=== PATIENT | male | born 1975 | race Caucasian/White ===

== ENCOUNTER 2018-07-27 12:27 | Emergency (ER) | payer BC ==
[2018-07-27] MEDS ORDERED: ASPIRIN 81 MG TABLET, CHEWABLE PO ONE (12:52)
--- NOTE | 2018-07-27 13:20 | ER Document Report ---
Entered by ROHINI DORANTES SCRIBE 07/27/18 [id number] Acting as scribe for:REINALDO DICKINSON DO ED Medical Screen (RME) - General Chief Complaint: Nausea/Vomiting/Diarrhea Stated Complaint: NAUSEA/VOMITING Time Seen by Provider: 07/27/18 12:47 Notes: 43-year-old male who presents to the emergency department today with complaints of dyspnea, diaphoresis, nausea, vomiting, muscle aches, and feeling generally weak. Patient states all of his symptoms began about the same time this morning at around 0900. Patient denies a history of coronary artery disease but adds that his father did have an GA at age 75. Patient states he has noticed some left sided chest discomfort and left upper extremity pain intermittently when working out. Patient denies any sick contacts or chest pain. I have greeted and performed a rapid initial assessment of this patient. A comprehensive ED assessment and evaluation of the patient, analysis of test results, and completion of the medical decision making process will be conducted by additional ED providers. Review of systems: Constitutional: Diaphoretic. EENT: No symptoms reported Cardiovascular: Denies chest pain. Respiratory: Shortness of breath. Gastrointestinal: Nausea and vomiting. Genitourinary: No symptoms reported Musculoskeletal: Generalized myalgias, generalized weakness. Skin: No symptoms reported Hematologic/Lymphatic: No symptoms reported Neurological/Psychological: No symptoms reported Yes All other systems reviewed and negative PHYSICAL EXAM GENERAL: Alert, interacts well. Appears comfortable despite being profusely diaphoretic. HEAD: Normocephalic, atraumatic. EYES: Pupils equal, round, and reactive to light. Extraocular movements intact. ENT: Oral mucosa moist, tongue midline. NECK: Full range of motion. Supple. Trachea midline. LUNGS: Clear to auscultation bilaterally, no wheezes, rales, or rhonchi. No respiratory distress. HEART: Regular rate and rhythm. No murmurs, gallops, or rubs. EXTREMITIES: Moves all 4 extremities spontaneously. NEUROLOGICAL: Alert and oriented x3. Normal speech. PSYCH: Normal affect, normal mood. SKIN: Warm and diaphoretic. - Related Data Allergies/Adverse Reactions: erythromycin base Allergy (Verified 07/27/18 12:29) Past Medical History - Social History Frequency of alcohol use: Rare - Past Medical History Cardiac Medical History: Reports: Hx Hypertension Renal/ Medical History: Denies: Hx Peritoneal Dialysis Physical Exam - Vital signs Vitals: Temp Pulse Resp BP Pulse Ox 97.5 F 81 24 H 118/77 97 07/27/18 12:40 07/27/18 12:40 07/27/18 12:40 07/27/18 12:40 07/27/18 12:40 Course - Vital Signs Vital signs: Temp Pulse Resp BP Pulse Ox 97.5 F 81 24 H 118/77 97 07/27/18 12:40 07/27/18 12:40 07/27/18 12:40 07/27/18 12:40 07/27/18 12:40 I personally performed the services described in the documentation, reviewed and edited the documentation which was dictated to the scribe in my presence, and it accurately records my words and actions.
[2018-07-27] MEDS ORDERED: ONDANSETRON HCL INJ/PF 4 MG/2 ML SDV IV ONE (13:33)
[2018-07-27 13:42] LABS: ABSOLUTE LYMPHOCYTES (AUTO) 1.5 10^3/uL (0.5-4.7); ABSOLUTE MONOCYTES (AUTO) 0.3 10^3/uL (0.1-1.4); ABSOLUTE NEUT (AUTO) 12.1 10^3/uL (1.7-8.2); BASOPHILS % (AUTO) 0.2 % (0-2); EOSINOPHILS % (AUTO) 0.1 % (0-6); HEMATOCRIT 46.3 % (37.9-51.0); LYMPHOCYTES % (AUTO) 10.7 % (13-45); MEAN CORPUSCULAR HEMOGLOBIN 31.6 pg (27.0-33.4); MEAN CORPUSCULAR HGB CONC 34.7 g/dL (32.0-36.0); MEAN CORPUSCULAR VOLUME 91 fl (80-97); MONOCYTES % (AUTO) 2.2 % (3-13); PLATELET COUNT 340 10^3/uL (150-450); RED BLOOD COUNT 5.07 10^6/uL (4.35-5.55); RED CELL DISTRIBUTION WIDTH 12.9 % (11.5-14.0); SEGMENTED NEUTROPHILS % (AUTO) 86.8 % (42-78); TOTAL CELLS COUNTED % (AUTO) 100 %; WHITE BLOOD COUNT 13.9 10^3/uL (4.0-10.5)
--- NOTE | 2018-07-27 13:47 | ER Document Report ---
ED General - General Chief Complaint: Nausea/Vomiting/Diarrhea Stated Complaint: NAUSEA/VOMITING Time Seen by Provider: 07/27/18 12:47 Primary Care Provider: CHRIS DE DIOS MD [ACTIVE STAFF] - Follow up as needed - [facility] Notes: Patient is a 43-year-old male with a history of hypertension who presents to the emergency department complaining of nausea, vomiting, diarrhea, and left lower quadrant abdominal pain that began this morning. Patient states that he does have associated diaphoresis and feels generally weak. Patient states that he has had a dry nonproductive cough today as well. His last episode of emesis was just prior to getting into a room in the emergency department. Patient states that his diarrhea is mostly watery without any melena or hematochezia. Patient states that he is able to eat and drink, but does have a decreased p.o. intake. He is urinating normally. No other surgical history. Contrary to the RME note, he adamantly denies any chest pain or discomfort. Patient states he does not have shortness of breath just "breathing faster." Denies any prolonged immobilization, distance travel, recent surgery/trauma, personal cancer history, hormone use, smoking, or previous DVT/PE. No other significant cardiopulmonary medical history. Father had an CA at 75. Denies any headache, fever, neck pain, changes in vision/speech/mentation/hearing, URI, sore throat, chest pain, palpitations, syncope, cough, wheeze, urinary retention, dysuria, hematuria, back pain, loss of control of bowel or bladder, numbness/tingling, muscle paralysis/weakness, or rash. - Related Data Allergies/Adverse Reactions: erythromycin base Allergy (Verified 07/27/18 12:29) Past Medical History - Social History Smoking Status: Never Smoker Frequency of alcohol use: Rare Family History: Reviewed & Not Pertinent Patient has suicidal ideation: No Patient has homicidal ideation: No - Past Medical History Cardiac Medical History: Reports: Hx Hypertension Renal/ Medical History: Denies: Hx Peritoneal Dialysis Review of Systems - Review of Systems -: Yes All other systems reviewed and negative Physical Exam - Vital signs Vitals: Temp Pulse Resp BP Pulse Ox 97.5 F 81 24 H 118/77 97 07/27/18 12:40 07/27/18 12:40 07/27/18 12:40 07/27/18 12:40 07/27/18 12:40 - Notes Notes: PHYSICAL EXAMINATION: GENERAL: Well-appearing, well-nourished and in no acute resp distress, but is slightly tachypneic and diaphoretic. A&Ox4. Answers questions appropriately. HEAD: Atraumatic, normocephalic. EYES: Pupils equal round and reactive to light, extraocular movements intact, sclera anicteric, conjunctiva are normal. ENT: Nares patent and without discharge. oropharynx clear without exudates. No tonsilar hypertrophy or erythema. Moist mucous membranes. NECK: Normal range of motion, supple without lymphadenopathy LUNGS: Breath sounds clear to auscultation bilaterally and equal. No wheezes rales or rhonchi. HEART: Regular rate and rhythm without murmurs, rubs, gallops. ABDOMEN: Soft, nondistended abdomen. No guarding. Normal bowel sounds present. No CVA tenderness bilaterally. + tenderness to the LLQ. When palpating the LUQ, pt felt pain in his LLQ. Shearer neg. No tenderness at [place]. Musculoskeletal: FROM to passive/active. Strength 5+/5. Brittany neg. No asymmetry to LE's. Extremities: No cyanosis, clubbing, or edema b/l. Peripheral pulses 2+. Capillary refill less than 3 seconds. NEUROLOGICAL: Normal speech, normal gait. PSYCH: Normal mood, normal affect. SKIN: Warm, Dry, normal turgor, no rashes or lesions noted. Course - Re-evaluation Re-evalutation: 07/27/18 18:[address] Calderon who is in agreement with dispo/plan (he also eval'd the patient): Patient is an afebrile, well-hydrated 43-year-old male who presents to the ED with n/v/d and abd pain, suspect viral. He does have associated weakness and diaphoresis primarily when he becomes nauseated. Vitals are acceptable without any significant tachycardia, tachypnea, or hypoxia. PE is otherwise unremarkable. Patient is nontoxic-appearing and is tolerating p.o. without any difficulties. CBC, CMP, EKG/cardiac enzymes 2, chest x-ray, and CT abd/pelv are all unremarkable for any acute pathology. Pt has received nausea meds and fl uids throughout his stay. He has not had any episodes of emesis. Patient has a heart score of 3, Wells score of 0, and is PERC negative. Orthostatics and ambulatory pulse ox was acceptable. Patient does not have any chest pain, dyspnea, or shortness of breath. Patient's presentation and symptomatology creates low suspicion for ACS, PE, pneumothorax, pericarditis, dissection, respiratory compromise, severe dehydration, sepsis, meningitis, or other systemic emergent condition at this time. Patient is aware that his condition can change from initial presentation and he needs to monitor symptoms closely and seek medical attention for any acute changes. Rx for zofran. Recommend conservative measures for symptoms. Recheck with your PCM in 2-3 days. Return to the ED with any worsening/concerning symptoms otherwise as reviewed in discharge. Patient is in agreement. - Vital Signs Vital signs: Temp Pulse Resp BP Pulse Ox 97.9 F 94 24 H 111/55 L 99 07/27/18 17:14 07/27/18 18:13 07/27/18 17:14 07/27/18 18:13 07/27/18 17:14 - Laboratory Result Diagrams: 07/27/18 13:08 07/27/18 13:08 Laboratory results interpreted by me: 07/27/18 07/27/18 07/27/18 12:35 13:08 13:08 WBC 13.9 H Seg Neutrophils % 86.8 H Lymphocytes % 10.7 L Monocytes % 2.2 L Absolute Neutrophils 12.1 H Carbon Dioxide 20 L Glucose 158 H POC Glucose 149 H Creatine Kinase 298 H Discharge - Discharge Clinical Impression: Nausea vomiting and diarrhea, Weakness Condition: Stable Disposition: HOME, SELF-CARE Instructions: Antinausea Medication ([facility]), Vomiting ([facility]) Additional Instructions: Maintain adequate fluid and food intake [place] diet ([employer] Bananas, rice, apples, toast, etc Zofran as needed tylenol if needed Monitor for any worsening symptoms Make sure you are staying hydrated enough to urinate and have normal BM's Recheck with your PCM in 2-3 days Consider consult with Gastroenterology for ongoing/worsening symptoms Return to the ED with any worsening symptoms and/or development of fever, headache, chest pain, palpitations, syncope, shortness of breath, trouble breathing, abdominal pain, n/v/d, blood in stool/urine, weakness, or other worsening symptoms that are concerning to you. Prescriptions: Ondansetron [Zofran Odt 4 mg Tablet] 1 - 2 tab PO Q4H PRN #15 tab.rapdis PRN Reason: For Nausea/Vomiting Referrals: CHRIS DE DIOS MD [ACTIVE STAFF] - Follow up as needed
[2018-07-27 13:49] LABS: A TYPE INFLUENZA AG NEGATIVE (NEGATIVE); B INFLUENZA AG NEGATIVE (NEGATIVE)
[2018-07-27 13:50] LABS: ALANINE AMINOTRANSFERASE 42 U/L (21-72); ALBUMIN 4.6 g/dL (3.5-5.0); ALKALINE PHOSPHATASE 73 U/L (38-126); ANION GAP 18 (5-19); ASPARTATE AMINO TRANSFERASE 49 U/L (17-59); BILIRUBIN,DIRECT 0.4 mg/dL (0.0-0.4); BILIRUBIN,TOTAL 0.4 mg/dL (0.2-1.3); BLOOD UREA NITROGEN 18 mg/dL (7-20); CALCIUM 9.9 mg/dL (8.4-10.2); CARBON DIOXIDE 20 mmol/L (22-30); CHLORIDE 104 mmol/L (98-107); CREATINE KINASE 298 U/L (55-170); GLUCOSE 158 mg/dL (75-110); POTASSIUM 4.3 mmol/L (3.6-5.0); SODIUM 141.6 mmol/L (137-145)
[2018-07-27] MEDS: NORMAL SALINE 1000 ML 1,000 ML IV PRN ×2 (13:53→14:52)
--- NOTE | 2018-07-27 13:53 | RADIOLOGY REPORT (SQ) ---
EXAM DESCRIPTION: CHEST SINGLE VIEW COMPLETED DATE/TIME: 07/27/2018 1:38 pm REASON FOR STUDY: SOB COMPARISON: None. EXAM PARAMETERS: NUMBER OF VIEWS: One view. TECHNIQUE: Single frontal radiographic view of the chest acquired. RADIATION DOSE: NA LIMITATIONS: None. FINDINGS: LUNGS AND PLEURA: No opacities, masses or pneumothorax. No pleural effusion. MEDIASTINUM AND HILAR STRUCTURES: No masses. Contour normal. HEART AND VASCULAR STRUCTURES: Heart normal in size. Normal vasculature. BONES: No acute findings. HARDWARE: None in the chest. OTHER: No other significant finding. IMPRESSION: NO ACUTE RADIOGRAPHIC FINDING IN THE CHEST. TECHNICAL DOCUMENTATION: JOB ID: [id number] [employer]- All Rights Reserved Reading location - IP/workstation name: [email or web address]
[2018-07-27 14:03] LABS: CREATINE KINASE MB 2.65 ng/mL (<4.55)
[2018-07-27 14:06] LABS: TROPONIN I < 0.012 ng/mL
--- NOTE | 2018-07-27 15:09 | RADIOLOGY REPORT (SQ) ---
EXAM DESCRIPTION: CT ABD/PELVIS WITH IV ONLY COMPLETED DATE/TIME: 07/27/2018 2:51 pm REASON FOR STUDY: LLQ pain COMPARISON: None. TECHNIQUE: CT scan of the abdomen and pelvis performed using helical scanning technique with dynamic intravenous contrast injection. No oral contrast. Images reviewed with lung, soft tissue, and bone windows. Reconstructed coronal and sagittal MPR images reviewed. Delayed images for evaluation of the urinary system also acquired. All images stored on PACS. All CT scanners at this facility use dose modulation, iterative reconstruction, and/or weight based d osing when appropriate to reduce radiation dose to as low as reasonably achievable (ALARA). [facility]: Dose Right [facility]: CareDose [facility]: Dose Right [facility]: Teradose 4D [facility]: VirnetX CONTRAST TYPE AND DOSE: contrast/concentration: Isovue 350.00 mg/ml; Total Contrast Delivered: 100.0 ml; Total Saline Delivered: 68.0 ml RENAL FUNCTION: BUN 18 creatinine 0.94 RADIATION DOSE: CT Rad equipment meets quality standard of care and radiation dose reduction techniq ues were employed. CTDIvol: 20.2 - 21.0 mGy. DLP: 2413 mGy-cm.. LIMITATIONS: None. FINDINGS: LOWER CHEST: No significant findings. No nodules or infiltrates. LIVER: There is a focal area of irregular calcification in the dome of the liver. No hepatic masses. Normal attenuation. SPLEEN: Normal size. No focal lesions. PANCREAS: No masses. No significant calcifications. No adjacent inflammation or peripancreatic fluid collections. Pancreatic duct not dilated. GALLBLADDER: No identified stones by CT criteria. No inflammatory changes to suggest cholecystitis. ADRENAL GLANDS: No significant masses or asymmetry. RIGHT KIDNEY AND URETER: No solid masses. No significant calcifications. No hydronephrosis or hyd roureter. LEFT KIDNEY AND URETER: No solid masses. No significant calcifications. No hydronephrosis or hydr oureter. AORTA AND VESSELS: No aneurysm. No dissection. Renal arteries, SMA, celiac without stenosis. RETROPERITONEUM: No retroperitoneal adenopathy, hemorrhage or masses. BOWEL AND PERITONEAL CAVITY: No masses or inflammatory changes. No free fluid or peritoneal masses. APPENDIX: Normal. PELVIS: No mass. No free fluid. Normal bladder. ABDOMINAL WALL: No masses. No hernias. BONES: No significant or acute findings. OTHER: No other significant finding. IMPRESSION: No acute findings in the abdomen or pelvis. There is focal irregular calcification the dome of the liver, possibly relating to prior trauma. TECHNICAL DOCUMENTATION: JOB ID: [id number] Quality ID # [id number]: Final reports with documentation of one or more dose reduction techniques (e.g., Au tomated exposure control, adjustment of the mA and/or kV according to patient size, use of iterative reconstruction technique) 2010 [employer]- All Rights Reserved Reading location - IP/workstation name: [email or web address]
[2018-07-27] MEDS ORDERED: PROMETHAZINE HCL INJ 50 MG/1 ML VIAL IM PRN ×2 (17:26→17:54)
[2018-07-27] MEDS ORDERED: NORMAL SALINE 1000 ML 1,000 ML IV ONE (17:28)
[2018-07-27 18:16] VITALS: BP 111/55
[2018-07-27] MEDS ORDERED: KETOROLAC TROMETHAMINE INJ/PF 30 MG/1 ML SDV IV ONE (18:19)
[2018-07-27] MEDS ORDERED: LORAZEPAM INJ 2 MG/1 ML VIAL IV ONE (18:37)
--- NOTE | 2018-07-27 22:54 | EKG REPORT ---
SEVERITY:- NORMAL ECG - SINUS RHYTHM : Confirmed by: Alma Delia Belcher MD 27-Jul-2018 22:53:23
== END 2018-07-27 19:17 | disposition home or self-care (01) ==
LOC: ER 12:27
DX: R11.2 Nausea with vomiting, unspecified (principal); R19.7 Diarrhea, unspecified; R53.1 Weakness; R10.32 Left lower quadrant pain; R61 Generalized hyperhidrosis; I10 Essential (primary) hypertension
CPT/HCPCS: 93005; 99284; 96372; 96361; 96374; 96375; 36415; 82553; 82962; 82550; 85025; 80053; 84484; 87804; 71045; 74177; 93010; J1885; J2060; J2550; J2405; J7030